=== PATIENT | female | born 1995 | race Caucasian/White ===

== ENCOUNTER 2024-07-07 16:42 | Emergency (ER) | payer OTHER, SELFPAY ==
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
[2024-07-07 16:59] VITALS: BP 123/69; PULSE 93; RESP 17; TEMP 36.4; O2SAT 100
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
== END 2024-07-07 18:53 | disposition home or self-care (01) ==
LOC: ANHED 18:52
PROVIDERS: Emergency Provider Physician Assistant; PCP Family Medicine
DX: S63.502A Unspecified sprain of left wrist, initial encounter (principal); S66.912A Strain of unspecified muscle, fascia and tendon at wrist and hand level, left hand, initial encounter; V49.9XXA Car occupant (driver) (passenger) injured in unspecified traffic accident, initial encounter
CPT/HCPCS: 73090; 73110; 73130; 99284